=== PATIENT | male | born 1960 | race Two or more races ===

== ENCOUNTER 2025-06-18 17:57 | Emergency (ER) | payer OTHER ==
[~2025-06-18] VITALS: Ht 185.4 cm; Wt 137.9 kg
[~2025-06-18 17:57] MED LIST: GLIPIZIDE5 MG; GLUCOTROL5 MG/BOTTL; GLUMETZA1000 MG; NEURONTIN800 MG
[2025-06-18] MEDS ORDERED: ZESTRIL2.5 MG (19:31)
[2025-06-18] MEDS ORDERED: FARXIGA5 MG (19:31)
[2025-06-18] MEDS ORDERED: MITIGARE0.6 MG (19:32)
[2025-06-18] MEDS ORDERED: TRULICITY0.75 MG/0. (19:32)
[2025-06-18] MEDS ORDERED: LASIX20 MG (19:32)
[2025-06-18] MEDS ORDERED: DIPHTH,PERTUSS(ACELL),TET VAC 0.5 ML SYRINGE IM ONE (20:15)
[2025-06-18] MEDS ORDERED: CEFTRIAXONE SODIUM 1,000 MG VIAL IM ONE (20:15)
[2025-06-18] MEDS ORDERED: KETOROLAC TROMETHAMINE 60 MG VIAL IM ONE (20:15)
[2025-06-18] MEDS ORDERED: LIDOCAINE HCL 1% 10ML VIAL PERCUT ONE (20:15)
[2025-06-18] MEDS ORDERED: PEPCID AC20 MG PO (21:44)
[2025-06-18] MEDS ORDERED: CEFUROXIME500 MG PO (21:44)
== END 2025-06-18 21:55 | disposition home or self-care (01) ==
LOC: ER 17:58
DX: S61.012A Laceration without foreign body of left thumb without damage to nail, initial encounter (principal); W27.0XXA Contact with workbench tool, initial encounter; Y93.89 Activity, other specified; Y92.89 Other specified places as the place of occurrence of the external cause; Y99.8 Other external cause status; E11.9 Type 2 diabetes mellitus without complications; Z79.84 Long term (current) use of oral hypoglycemic drugs
CPT/HCPCS: 13132; 13133; 73130; 90471; 90714; 96372; 99283; J0696; J1670; J1885; J3490